=== PATIENT | female | born 1945 | race Caucasian/White ===

== ENCOUNTER 2025-07-22 14:21 | Emergency (ER) | payer MEDICARE, SELFPAY ==
[2025-07-22 14:29] VITALS: BP 130/92
--- NOTE | 2025-07-22 16:30 | ED.GENMED ---
History of Present Illness
General
Chief Complaint: Eye Problems
Source: patient
Time Seen by Provider: 07/22/25 16:08
History of Present Illness
History of Present Illness:
80-year-old female, very pleasant and vibrant, was mowing the lawn today, and shortly after finishing noted irritation of her left eye. She denies foreign body sensation, fever, chills, headache, drainage, discharge. She does note mild tearing and
that the eye looks a little red to her. Patient denies neck pain, numbness, blurry vision, double vision, vomiting, or other complaints.
Past History
Past History
ED Past Medical History: GERD and Hypercholesterolemia
Social History
Tobacco: Non-smoker
Alcohol: None
Drug: None
Living: alone
Phy Exam
Physical Exam
Physical Exam:
GENERAL: Alert , in no apparent distress
EYE: pupils equal and reactive, no photophobia, EOMI, no nystagmus. No hyphema noted. Visual biggs intact. Intraocular pressure measured at 15. Fluorescein exam negative Spencer, no foreign body, no corneal ulceration noted patient does have
mild tearing. Periorbital area is normal without swelling, redness, tenderness to palpation
NECK: Supple, no significant adenopathy.
ENT: o/p clr, mmm.
CARDIAC: Regular rate and rhythm .
LUNGS: Clear breath sounds bilaterally, no acute respiratory distress, no wheezes/rales/rhonchi
ABDOMEN: Soft, without focal tenderness, no r/g
NEUROLOGICAL: Alert and oriented, no focal neuro deficits
SKIN: Warm and dry, skin intact.
MUSCULOSKELETAL: No edema, well perfused.
PSYCH: Normal and appropriate interaction.
Course
Vital Signs
Initial and Last Documented VS:
Initial Vital Signs
Temp Pulse Resp BP Pulse Ox
98.3 F 99 18 130/92 96
07/22/25 14:29 07/22/25 14:29 07/22/25 14:07/22/25 14:07/22/25 14:29
Last Documented Vital Signs
Temp Pulse Resp BP Pulse Ox
98.3 F 99 18 130/92 96
07/22/25 14:29 07/22/25 14:29 07/22/25 14:07/22/25 14:07/22/25 14:29
*Pulse Oximetry
SaO2: 96
Oxygen Mode of Delivery: Room air
Update Note
Update Note:
Patient presents to the Emergency Department with __eye irritation
Number and Complexity of Problems Addressed at the Encounter
� Chronic conditions affecting care:
� Acute Exacerbation and/or Progression of Chronic Illness:
� Differential Diagnosis includes: Not limited to foreign body, corneal abrasion, corneal ulceration, irritant to eye, conjunctivitis, etc. etc.
Amount and/or Complexity of Data to be Reviewed and Analyzed
� I performed an independent evaluation of and my interpretation is:
EKG:
CT:
Xrays:
Laboratory Studies:
Other:
� Review of other/old records reveals:
� Clinical information was obtained by an independent historian:
� Prescriptions/Medications Considered but not given:
� Further testing considered but not performed:
Risk of Complications and/or Morbidity or Mortality of Patient Management
� Social determinants of health affecting care:
� Discussion with other providers (PCP, Hospitalists, Consultants, etc):
� Escalation of care including admission/observation vs risk of discharge considered: Of note, pH is normal. No foreign body noted. Suspect patient developed irritation from mowing lawn, recommend antihistamines and will cover
with antibiotics as well. No findings to suggest globe rupture, foreign body, glaucoma acute angle, etc.
ED Attending Note
-
Portions of this chart may have been created with voice recognition software.� Occasional wrong word or��sound alike� substitutions may have occurred due to the inherent limitations of voice recognition software.
Discharge Plan
Departure
Patient Disposition: Home (Routine Discharge)
Date of Disposition: 07/22/25
Time of Disposition: 16:38
Patient with high blood pressure during this ER visit?: Yes
Condition: Good
Discharge Problem:
Eye irritation
Instructions: How to Use Eye Drops, BLOOD PRESSURE
Prescriptions:
New
sulfacetamide sodium 10 % drops
2 drp ophthalmic (eye) Q4H Qty: 15 0RF
No Action
meclizine 12.5 mg tablet
12.5 mg PO TID PRN (Reason: dizziness) Qty: 20 0RF
prednisone 20 mg tablet
40 mg PO DAILY 7 Days Qty: 14 0RF
Referrals:
UNKNOWN - PT DOES,NOT KNOW [Family Provider]
Activity Restrictions/Additional Instructions:
PLEASE SEE YOUR EYE DOCTOR IN CLOSE FOLLOW UP. IF YOU DEVELOP INCREASING/NEW/PERISTENT EYE PAIN/IRRITATION, ANY FEVER, VOMITING, SEVERE HEADACHE, DOUBLE VISION, CHANGE IN VISION, DRAINAGE, SWELLING, OR OTHER WORRISOME SIGNS, GO TO THE ER
IMMEDIATELY! PLEASE SEE YOUR EYE DOCTOR THIS WEEK.
Interventions
Interventions:
*Risk Screen - Suicide Last Done: 07/22/25 14:29
*General Assessment Last Done: 07/22/25 14:29
Discharge Date and Time
Print Language: SWAZI
== END 2025-07-22 17:12 | disposition home or self-care (01) ==
LOC: EMR 14:21
PROVIDERS: EMERGENCY PHYSICIAN Emergency Medicine; FAMILY PHYSICIAN Nurse Practitioner
DX: H57.89 Other specified disorders of eye and adnexa (principal); K21.9 Gastro-esophageal reflux disease without esophagitis; E78.00 Pure hypercholesterolemia, unspecified
CPT/HCPCS: 99282